=== PATIENT | female | born 1965 | race Caucasian/White ===

== ENCOUNTER 2021-06-17 17:50 | Inpatient (IN) | payer BC, OTHER ==
[~2021-06-17] VITALS: Ht 177.8 cm; Wt 97.5 kg
--- NOTE | 2021-06-17 18:05 | NUR ---
THE PATIENT BIBS FOR C/O FEVER CHILLS & SORETHROAT, PT HAD COLONOSCOPY THIS AM. RATES SORE THROAT 3/10. IN ROOM AIR AND DENIES SOB. RESPIRATION REGULAR AND UNLABORED. WILL CONTINUE TO MONITOR THE PATIENT.
--- NOTE | 2021-06-17 18:09 | NUR ---
DR BARRY AT THE BEDSIDE
--- NOTE | 2021-06-17 18:23 | NUR ---
URINE COLLECTED AND SENT TO THE LAB
[2021-06-17] MEDS ORDERED: FAMOTIDINE/PF INJ 20 MG/2 ML VIAL IV ONE ×2 (18:49→19:00)
--- NOTE | 2021-06-17 18:59 | NUR ---
PAGED DR IQBAL AT [phone]. AWAITING DR IQBAL TO CALL TO SPEAK TO DR DUMONT IN REGARDS TO PT.
[2021-06-17] MEDS ORDERED: IV NS 0.9% 1,000 ML BAG IV ONE (19:00)
--- NOTE | 2021-06-17 19:01 | NUR ---
STARTED RAC G 18, BLOOD SPECIMEN COLLECTED AND SENT TO THE LAB. THE LINE IS SALINE LOCKED.
--- NOTE | 2021-06-17 19:26 | NUR ---
REPORT GIVEN TO NURSE MUKHERJEE
[2021-06-17 19:38] LABS: CALCIUM, SERUM 8.7 mg/dL (8.5-10.1); CARBON DIOXIDE 30 mmol/L (21-32); CHLORIDE 103 mmol/L (98-107); CREATININE 0.6 mg/dL (0.6-1.3); GLUCOSE 130 mg/dL (74-106); POTASSIUM 3.3 mmol/L (3.5-5.1); SODIUM SERUM 138 mmol/L (136-145); UREA NITROGEN, BLOOD 9 mg/dL (7-18)
[2021-06-17 19:45] LABS: ALANINE AMINOTRANSFERASE 20 U/L (12-78); ALBUMIN 3.6 g/dL (3.4-5.0); ALKALINE PHOSPHATASE 65 U/L (46-116); ASPARTATE AMINOTRANSFERASE 17 U/L (15-37); BILIRUBIN,DIRECT 0.1 mg/dL (0.0-0.2); BILIRUBIN,TOTAL 0.4 mg/dL (0.2-1.0); LIPASE 92 U/L (73-393); TOTAL PROTEIN, SERUM 7.8 g/dL (6.4-8.2)
--- NOTE | 2021-06-17 19:48 | NUR ---
CALLED PT PRIMARY DR HOLLOWAY AT [phone], REFERRED CALLS TO [employer] [facility] DR BHATIA, AT [phone], LEFT VOICEMAIL TO [facility] [employer] [facility]
[2021-06-17 20:11] LABS: BILIRUBIN,URINE NEGATIVE (NEGATIVE); COLOR,URINE YELLOW (YELLOW); LEUKOCYTE ESTERASE ,URINE TRACE (NEGATIVE); NITRITE, URINE NEGATIVE (NEGATIVE); PROTEIN,URINE NEGATIVE (NEGATIVE); UGLUCOSE NEGATIVE (NEGATIVE); UROBILINOGEN,URINE 0.2 EU/dL (0.2)
[2021-06-17 20:17] LABS: BASOPHILS % (AUTO) 0.1 % (0.0-2.0); HEMATOCRIT 39 % (33-45); HEMOGLOBIN 13.1 g/dL (11.5-14.8); LYMPHOCYTES # (AUTO) 0.7 K/uL (0.8-4.8); MEAN CORPUSCULAR HGB CONC 33 g/dl (31.0-36.0); MEAN CORPUSCULAR VOLUME 90 fL (82-100); MONOCYTES # (AUTO) 0.6 K/uL (0.1-1.30); MONOCYTES % (AUTO) 3.8 % (2.0-12.0); NEUTROPHILS # (AUTO) 15.1 K/uL (1.8-8.9); NEUTROPHILS % (AUTO) 92.1 % (43.0-81.0); PLATELET COUNT (AUTO) 295 K/uL (150-450); RED BLOOD CELL COUNT(AUTO) 4.33 MIL/uL (4.0-5.2); WHITE BLOOD COUNT (AUTO) 16.4 K/uL (4.3-11.0)
[2021-06-17] MEDS ORDERED: LIDOCAINE VISCOUS 2% UD 15 ML UDC MM ONE (20:30)
[2021-06-17] MEDS ORDERED: MAG HYDROX/AL HYDROX/SIMETH 30 ML UDC PO ONE (20:30)
[2021-06-17] MEDS ORDERED: LIDOCAINE VISCOUS 2% UD 15 ML UDC ONE (20:41)
[2021-06-17] MEDS ORDERED: MAG HYDROX/AL HYDROX/SIMETH 30 ML UDC ONE (20:41)
[2021-06-17 20:42] LABS: BACTERIA,URINE 1+ /HPF (None Seen); SQUAMOUS EPITHELIAL CELL,UR Few /HPF (None Seen)
--- NOTE | 2021-06-17 21:05 | NUR ---
CALLED [facility] [employer] DR BHATIA, LEFT VOICEMAIL
[2021-06-17] MEDS ORDERED: MAG HYDROX/AL HYDROX/SIMETH 30 ML UDC PO PRN (22:00)
[2021-06-17] MEDS ORDERED: MAGNESIUM HYDROXIDE 30 ML UDC PO PRN (22:00)
[2021-06-17] MEDS ORDERED: Z GUARD REMEDY 2 OZ OINT TP PRN (22:00)
[2021-06-17] MEDS ORDERED: POTASSIUM CHLORIDE 20 MEQ TAB.PRT.SR PO ONE (22:00)
[2021-06-17] MEDS ORDERED: ACETAMINOPHEN 325 MG TABLET PO PRN (22:00)
[2021-06-17] MEDS ORDERED: ONDANSETRON HCL/PF 4 MG/2 ML VIAL IVP PRN (22:00)
[2021-06-17] MEDS ORDERED: ZOLPIDEM TARTRATE 5 MG TABLET PO PRN (22:00)
--- NOTE | 2021-06-17 22:48 | NUR ---
COVID SWAB COMPLETED AND SENT
[2021-06-18 00:30] VITALS: BP 114/77
[2021-06-18] MEDS ORDERED: PIPERACILLIN /TAZOBACTAM 3.375 G in IV D5W 50 ML IV SCH ×3 (00:33→12:00)
--- NOTE | 2021-06-18 00:37 | NUR ---
REPORT GIVEN TO RENATA YOUNG.
--- NOTE | 2021-06-18 00:40 | NUR ---
RN NOTES RECEIVED PATIENT FROM ER. TRANSPORTED VIA GURNEY. Patient alert and oriented x4. able to make needs known. Breathing even and unlabored. NO SOB, no cough/congestion noted. Patient currently on oxygen 2L/min nasal cannula. Tolerating well. O2 saturating at 99 percent. Skin is warm and dry to touch. afebrile. abdomen soft and non-tender. denies constipation. No edema noted. Patient able to ambulate to the bathroom. Noted with Right AC IV access, 18G. Intact, able to flush. Denies pain at this time. Assisted with hygiene. Contact and droplet precaution observed. Call light placed within reach.
[2021-06-18] MEDS ORDERED: PIPERACILLIN /TAZOBACTAM 3.375 G VIAL IV ONE (02:29)
[2021-06-18 04:00] VITALS: BP 100/62
[2021-06-18 06:38] LABS: BASOPHILS % (AUTO) 0.3 % (0.0-2.0); EOSINOPHILS % (AUTO) 1.3 % (0.0-6.0); HEMATOCRIT 34 % (33-45); HEMOGLOBIN 11.4 g/dL (11.5-14.8); LYMPHOCYTES # (AUTO) 1.6 K/uL (0.8-4.8); LYMPHOCYTES % (AUTO) 14.4 % (20.0-44.0); MEAN CORPUSCULAR HGB CONC 33 g/dl (31.0-36.0); MEAN CORPUSCULAR VOLUME 91 fL (82-100); MONOCYTES # (AUTO) 0.7 K/uL (0.1-1.30); MONOCYTES % (AUTO) 6.3 % (2.0-12.0); NEUTROPHILS # (AUTO) 8.9 K/uL (1.8-8.9); NEUTROPHILS % (AUTO) 77.7 % (43.0-81.0); PLATELET COUNT (AUTO) 264 K/uL (150-450); WHITE BLOOD COUNT (AUTO) 11.4 K/uL (4.3-11.0)
--- NOTE | 2021-06-18 06:38 | NUR ---
RN NOTES NO SIGNIFICANT CHANGES DURING SHIFT. PATIENT RESTING, AROUSABLE TO NAME. ABLE TO MAKE NEEDS KNOWN. BREATHING EVEN AND UNLABORED. CURRENTLY ON O2 THERAPY AT 2L/MIN. HOB FLAT. NO COMPLAINTS OF PAIN. PATIENT RECEIVED IV ATB, NO ADVERSE REACTION NOTED. CALL LIGHT WITHIN REACH. WILL ENDORSE ACCORDINGLY TO NEXT SHIFT FOR CONTINUITY OF CARE.
[2021-06-18 06:50] LABS: CREATININE 0.6 mg/dL (0.6-1.3); MAGNESIUM 2.3 mg/dL (1.8-2.4); PHOSPHORUS 3.1 mg/dL (2.5-4.9); POTASSIUM 3.8 mmol/L (3.5-5.1)
--- NOTE | 2021-06-18 07:30 | NUR ---
RN OPENING NOTES RECEIVED PT RESTING, STABLED, AND AROUSABLE TO NAME. BREATHING EVEN AND UNLABORED. CURRENTLY ON O2 THERAPY AT 2L/MIN. PT ON LOW SEMI-FOLWERS NO COMPLAINTS OF PAIN. 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 CALL LIGHT WITHIN REACH. WILL CONTINUE TO MONITOR PT FOR ANY SIGNS OF DISTRESS, PAIN, INFECTION.
[2021-06-18 08:00] VITALS: BP 91/53
--- NOTE | 2021-06-18 09:30 | NUR ---
RN NOTES DUE MEDS GIVEN
[2021-06-18] MEDS: PIPERACILLIN /TAZOBACTAM 3.375 G in IV D5W 100 ML IV SCH ×2 (12:20→21:04)
[2021-06-18 16:00] VITALS: BP 115/90
--- NOTE | 2021-06-18 18:27 | NUR ---
RN CLOSING NOTES PT IS RESTING IN BED, STABLED, AND STATES TO BE IN A BETTER CONDITION. PT STATES 0 PAIN. CURRENTLY ON O2 THERAPY AT 2L/MIN. PATIENT HAS AN IV SL 22G LEFT FOREARM. NO SIGNS AND SYMPTOMS OF INFILTRATION NOTED. CALL LIGHT WITHIN REACH.PT FINISHED HER ABX. WILL ENDORSED TO RADIO ENGINEER NURSE
--- NOTE | 2021-06-18 19:34 | NUR ---
MS RN Opening Notes Patient was last seen awake in bed resting. Patient's A/Ox4. Patient's on 2L of oxygen via nasal cannula with no respiratory distress noted. Patient has an IV access on her LFA G#22. Patient's in no acute distress at this time. Safety measures in place: Bed locked, side rails upx2, and call light within reach of the patient. Will continue to monitor the patient.
[2021-06-18 20:00] VITALS: BP 94/48
[2021-06-19 04:00] VITALS: BP 97/47
[2021-06-19] MEDS: PIPERACILLIN /TAZOBACTAM 3.375 G in IV D5W 100 ML IV SCH ×2 (04:43→12:00)
--- NOTE | 2021-06-19 06:38 | NUR ---
MS RN Closing Notes Patient was last seen sleeping in bed. Patient's A/Ox4. Patient's on room air with no respiratory distress noted. Patient has an IV access on her LFA G#22, which is intact, patent, and flushes well. Patient's in no acute distress at this time. Safety measures in place: Bed locked, side rails upx2, and call light within reach of the patient. Will endorse care to the day shift nurse.l
--- NOTE | 2021-06-19 07:27 | NUR ---
RN OPENING NOTES; RECEIVED PT IN BED SLEEPING. PT A/OX4, 0 DISTRESS NOTED, 0 C/O PAIN. PT TOLERATING RA SAT @ 100%. IV ON LFA G#22 INTACT WITH NO SIGNS OF INFILTRATION. SAFETY MEASURES RENDERED. BED IN LOWEST POS. LOCKED, WITH CALL LIGHT WITHIN REACH. WILL CONTINUE TO MONITOR.
[2021-06-19 12:00] VITALS: BP 118/68
[2021-06-19] MEDS ORDERED: ALBU8.5H8 INH (16:37)
[2021-06-19] MEDS ORDERED: AMOX-427 PO (16:37)
[2021-06-19] MEDS ORDERED: LEVO750T46 PO (16:52)
--- NOTE | 2021-06-19 17:38 | NUR ---
RN DC NOTES; PT DC'S TO HOME IN STABLE CONDITION. DC INSTRUCTIONS GIVEN AND EXPLAINED. VERBALIZED UNDERSTANDING. ALL PAPERWORK COMPLETED, SIGNED AND GIVEN. PT ESCORTED BY RN TO PARKING LOT. PT LEFT VIA PRIVATE VEHICLE IN STABLE CONDITION.
== END 2021-06-19 17:33 | disposition home or self-care (01) | DRG 205 ==
LOC: ER 18:56 → MEDSG1 06-18 00:27
PROVIDERS: ADMIT Nurse Practitioner Acute Care; ATTEND Nurse Practitioner Acute Care
DX: J95.89 Other postprocedural complications and disorders of respiratory system, not elsewhere classified (principal); J69.0 Pneumonitis due to inhalation of food and vomit; J15.9 Unspecified bacterial pneumonia; Y83.8 Other surgical procedures as the cause of abnormal reaction of the patient, or of later complication, without mention of misadventure at the time of the procedure; Y73.8 Miscellaneous gastroenterology and urology devices associated with adverse incidents, not elsewhere classified; Y92.89 Other specified places as the place of occurrence of the external cause; E87.6 Hypokalemia; Z20.822 Contact with and (suspected) exposure to COVID-19; E66.9 Obesity, unspecified; Z59.0 Homelessness; D72.829 Elevated white blood cell count, unspecified; G47.33 Obstructive sleep apnea (adult) (pediatric); Z68.30 Body mass index [BMI] 30.0-30.9, adult
CPT/HCPCS: 36415; 71045-TC; 80048-TC; 80061-TC; 80076-TC; 81001; 83605-TC; 83690-TC; 83735-TC; 84100-TC; 84484-TC; 85025-TC; 87040-TC; 87081-TC; 87086-TC; C9803; G0378; J2543; J3490; J7030; J7050; J7060; U0003